=== PATIENT | male | born 1965 | race Caucasian/White ===

== ENCOUNTER 2017-09-28 18:59 | Emergency (ER) | payer BC, MEDICARE ==
[~2017-09-28] VITALS: Ht 177.8 cm; Wt 92.4 kg
[2017-09-28] MEDS ORDERED: HYDR-569 PO (19:54)
[2017-09-28 20:29] VITALS: BP 145/81
== END 2017-09-28 20:31 | disposition home or self-care (01) ==
LOC: ER 19:00
DX: S82.51XA Displaced fracture of medial malleolus of right tibia, initial encounter for closed fracture (principal); S93.401A Sprain of unspecified ligament of right ankle, initial encounter; W13.2XXA Fall from, out of or through roof, initial encounter; Y93.89 Activity, other specified; Y92.89 Other specified places as the place of occurrence of the external cause; Y99.8 Other external cause status
CPT/HCPCS: 73610; 99284